=== PATIENT | female | born 1990 | race Caucasian/White ===

== ENCOUNTER → 2023-06-01 | Outpatient (CLI) | payer BC ==
[~2023-06-01] MED LIST: IBUP-1022 PO; OXYC1TAB23 PO; PRENTAB53 PO
== END ==
LOC: M WHC 10:28
PROVIDERS: ATTEND Obstetrics & Gynecology
DX: Z34.80 Encounter for supervision of other normal pregnancy, unspecified trimester (principal); Z3A.19 19 weeks gestation of pregnancy

== ENCOUNTER → 2023-07-13 | Outpatient (CLI) | payer BC | LOC: M WHC 09:34 | PROVIDERS: ATTEND Obstetrics & Gynecology | DX: O32.1XX0 Maternal care for breech presentation, not applicable or unspecified (principal); Z3A.24 24 weeks gestation of pregnancy ==

== ENCOUNTER → 2023-07-25 | Outpatient (CLI) | payer BC ==
[2023-07-25 13:43] LABS: HEMATOCRIT 33.4 % (36.0-47.0); HEMOGLOBIN 11.3 g/dl (12.0-15.5); MEAN CORPUSCULAR HEMOGLOBIN 31.8 pg (27.0-33.0); MEAN CORPUSCULAR HGB CONC 33.8 g/dl (32.0-36.5); MEAN CORPUSCULAR VOLUME 94.1 fl (80.0-96.0); PLATELET COUNT, AUTOMATED 260 10^3/uL (150-450); RED BLOOD COUNT 3.55 10^6/uL (4.00-5.40); WHITE BLOOD COUNT 16.3 10^3/uL (4.0-10.0)
[2023-07-25 15:24] LABS: CHLAMYDIA DNA AMPLIFICATION NEGATIVE (NEGATIVE); GC DNA AMPLIFICATION NEGATIVE (NEGATIVE)
== END ==
LOC: M PLALAB 09:55
PROVIDERS: ATTEND Obstetrics & Gynecology
DX: O34.211 Maternal care for low transverse scar from previous cesarean delivery (principal)

== ENCOUNTER → 2023-09-19 | Outpatient (CLI) | payer BC, OTHER, SELFPAY | LOC: M WHC 13:44 | PROVIDERS: ATTEND Advanced Practice Midwife | DX: O24.410 Gestational diabetes mellitus in pregnancy, diet controlled (principal) ==

== ENCOUNTER → 2023-10-05 | Outpatient (REF) | payer OTHER | LOC: M PLALAB 11:17 | PROVIDERS: ATTEND Obstetrics & Gynecology | DX: Z36.89 Encounter for other specified antenatal screening (principal); Z3A.37 37 weeks gestation of pregnancy ==

== ENCOUNTER → 2023-10-05 | Outpatient (CLI) | payer OTHER | LOC: M WHC 12:23 | PROVIDERS: ATTEND Obstetrics & Gynecology | DX: O28.8 Other abnormal findings on antenatal screening of mother (principal) ==

== ENCOUNTER 2023-11-01 03:11 | Inpatient (IN) | payer OTHER ==
[2023-11-01] VITALS (12 sets, daily range): BP systolic 113–158; BP diastolic 58–96; TEMP 97.8; O2SAT 98–99
[~2023-11-01] VITALS: Ht 157.5 cm; Wt 60.4 kg
[2023-11-01] MEDS ORDERED: TUMS500C PO (03:39)
[2023-11-01] MEDS ORDERED: HOME MED LIST COMPLETE! XX SCH (03:40)
[2023-11-01] MEDS ORDERED: OXYTOCIN DRIP 30 UNITS in IV 1 EA IV PRN ×2 (04:05→12:20)
[2023-11-01] MEDS ORDERED: CARBOPROST TROMETHAMINE 250 MCG/ML AMP IM PRN (04:05)
[2023-11-01] MEDS ORDERED: OXYTOCIN INJ 10UNITS/ML 1ML VIAL IM PRN (04:05)
[2023-11-01] MEDS ORDERED: LIDOCAINE 1% MDV 20ML VIAL INFIL PRN (04:05)
[2023-11-01] MEDS ORDERED: TRANEXAMIC ACID INJection 1,000 MG in NS 100 ML IV PRN ×2 (04:05→12:20)
[2023-11-01 04:35] LABS: HEMATOCRIT 37.8 % (36.0-47.0); HEMOGLOBIN 12.6 g/dl (12.0-15.5); MEAN CORPUSCULAR HEMOGLOBIN 30.4 pg (27.0-33.0); MEAN CORPUSCULAR HGB CONC 33.3 g/dl (32.0-36.5); MEAN CORPUSCULAR VOLUME 91.1 fl (80.0-96.0); PLATELET COUNT, AUTOMATED 222 10^3/uL (150-450); RED BLOOD COUNT 4.15 10^6/uL (4.00-5.40)
[2023-11-01 05:00] LABS: TOTAL PROTEIN,RANDOM URINE 19.2 MG/DL (0.0-14.0)
[2023-11-01 05:05] LABS: CREATININE,RANDOM URINE 49.4 MG/DL; LDH LACTATE DEHYDROGENASE 341 U/L (120-246)
[2023-11-01 05:25] LABS: ALT/SGPT 19 U/L (7.0-40); AST/SGOT 44 U/L (<34); BILIRUBIN,TOTAL 0.6 MG/DL (0.3-1.2); CREATININE FOR GFR 0.52 MG/DL (0.55-1.30); GLOMERULAR FILTRATION RATE > 60.0 (>60); URIC ACID 5.4 MG/DL (3.1-7.8)
[2023-11-01] MEDS ORDERED: OXYTOCIN DRIP 30 UNITS in IV 1 EA IV SCH (10:50)
[2023-11-01] MEDS: LR 1,000 ML IV SCH ×2 (12:42→13:30)
[2023-11-01] MEDS: ceFAZolin SOD 2 GM in IV 1 EA IV ONE (12:45)
[2023-11-01] MEDS: BICITRA 30ML SOLN UDC PO ONE (12:45)
[2023-11-01] MEDS: AZITHROMYCIN INJ 500 MG, VIAL MATE ADAPTER 1 EACH in NS 250 ML IV ONE (12:46)
[2023-11-01] MEDS ORDERED: CALCIUM CARBONATE 500 MG CHEW U/D PO PRN (13:30)
[2023-11-01] MEDS ORDERED: MOM 30ML SUSPENSION UDC PO PRN (13:30)
[2023-11-01] MEDS ORDERED: RHOGAM 300MCG (1500IU) INJ IM SCH (13:30)
[2023-11-01] MEDS ORDERED: PERCOCET 5MG/325MG TAB PO PRN ×2 (13:30)
[2023-11-01] MEDS ORDERED: SIMETHICONE 80MG CHEW TAB PO PRN (13:30)
[2023-11-01] MEDS ORDERED: ONDANSETRON 4MG 2ML VIAL IV PRN ×2 (13:30→14:20)
[2023-11-01] MEDS ORDERED: KETOROLAC 60MG 2ML VIAL As Ordered ONE (13:54)
[2023-11-01] MEDS ORDERED: ACETAMINOPHEN 1000MG 100ML IV BAG As Ordered ONE (13:54)
[2023-11-01] MEDS ORDERED: ONDANSETRON 4MG 2ML VIAL As Ordered ONE (13:54)
[2023-11-01] MEDS ORDERED: METOCLOPRAMIDE INJ 10MG/2ML VIAL As Ordered ONE (13:54)
[2023-11-01] MEDS ORDERED: OXYTOCIN 30UNITS IN 0.9% NaCl 500ML IV BAG As Ordered ONE (13:54)
[2023-11-01] MEDS ORDERED: MORPHINE PRES-FREE INJ 10 MG/10 ML VIAL As Ordered ONE (13:54)
[2023-11-01] MEDS ORDERED: PHENYLephrine 500MCG 5ML (100MCG/ML) SYRINGE As Ordered ONE (13:59)
[2023-11-01] MEDS ORDERED: HYDROMORPHONE HCL 0.5 MG/ 0.5 ML SYRINGE IV PRN (14:20)
[2023-11-01] MEDS ORDERED: **NOTE PATIENT COMMENT** MISC XX SCH (14:20)
[2023-11-01] MEDS ORDERED: oxyCODONE 5MG TAB PO PRN (14:20)
[2023-11-01] MEDS ORDERED: NALOXONE INJ 0.4MG/1ML VIAL IV PRN ×2 (14:20)
[2023-11-01] MEDS ORDERED: fentaNYL 100 MCG/2 ML INJECTION IV PRN (14:20)
[2023-11-01] MEDS ORDERED: METOCLOPRAMIDE INJ 10MG/2ML VIAL IV PRN (14:20)
[2023-11-01] MEDS: SLF 3 ML SYR IV SCH (14:20)
[2023-11-01] MEDS ORDERED: MEPERIDINE 25 MG/ML 1ML VIAL IV PRN (14:20)
[2023-11-01] MEDS ORDERED: diphenhydrAMINE 50MG/ML VIAL IV PRN (14:20)
[2023-11-01] MEDS: OXYTOCIN DRIP 30 UNITS in IV 1 EA IV SCH (15:06)
[2023-11-01] MEDS: DOCUSATE SODIUM 100MG CAPSULE PO SCH (20:16)
[2023-11-01] MEDS: KETOROLAC 30 MG/ML 1ML VIAL IV SCH (20:17)
[2023-11-02 02:00] VITALS: BP 120/72; O2SAT 99
[2023-11-02] MEDS ORDERED: COLA100C5 PO (04:36)
[2023-11-02] MEDS ORDERED: IBUP80TA PO (04:36)
[2023-11-02 05:52] VITALS: BP 117/64; O2SAT 98
[2023-11-02 06:32] LABS: MEAN CORPUSCULAR HEMOGLOBIN 31.2 pg (27.0-33.0); MEAN CORPUSCULAR HGB CONC 33.7 g/dl (32.0-36.5); MEAN CORPUSCULAR VOLUME 92.8 fl (80.0-96.0); PLATELET COUNT, AUTOMATED 185 10^3/uL (150-450); RED BLOOD COUNT 3.33 10^6/uL (4.00-5.40); WHITE BLOOD COUNT 15.8 10^3/uL (4.0-10.0)
[2023-11-02 06:48] LABS: HEMATOCRIT 30.9 % (36.0-47.0); HEMOGLOBIN 10.4 g/dl (12.0-15.5)
[2023-11-02] MEDS: PRENATAL VITAMINS CHEWABLE TABLET PO SCH (07:45)
[2023-11-02] MEDS: FERROUS SULFATE 325MG TAB PO SCH (07:46)
[2023-11-02 10:00] VITALS: BP 116/59; O2SAT 97
[2023-11-02 14:00] VITALS: BP 110/56; O2SAT 99
[2023-11-02] MEDS: IBUPROFEN 800 MG TAB PO SCH (16:48)
[2023-11-02 18:00] VITALS: BP 110/55; O2SAT 99
[2023-11-02 22:01] VITALS: BP 132/70; O2SAT 97
[2023-11-03 02:09] VITALS: BP 110/54; O2SAT 99
[2023-11-03 06:00] VITALS: BP 105/58; O2SAT 99
[2023-11-03] MEDS ORDERED: MEASLES,MUMPS,RUBELLA VACCINE INJ (MMR-II) SC.IMMUN ONE (09:00)
[2023-11-03] MEDS ORDERED: PERCOCET PO (10:00)
== END 2023-11-03 13:25 | disposition home or self-care (01) | DRG 540 ==
LOC: M LDO 03:11 → M LDI 04:02 → M OBS 14:36 → M LDI 14:42 → M OBS 15:45
PROVIDERS: ADMIT Advanced Practice Midwife; ATTEND Obstetrics & Gynecology
PROC: 10D00Z1 Extraction of Products of Conception, Low, Open Approach (ICD-10-PCS; principal; 2023-11-01 13:25)
DX: O34.211 Maternal care for low transverse scar from previous cesarean delivery (principal); O71.1 Rupture of uterus during labor; O48.0 Post-term pregnancy; Z3A.40 40 weeks gestation of pregnancy; O77.0 Labor and delivery complicated by meconium in amniotic fluid; Z37.0 Single live birth